=== PATIENT | male | born 1975 | race Two or more races ===

== ENCOUNTER → 2023-05-29 | Outpatient (CLI) | payer BC ==
[2023-05-29 08:27] LABS: Basophils # (auto) 0 10 ^3/uL (0-0.2); Basophils % (auto) 0.5 % (0.0-2.0); Eosinophils # (auto) 0.2 10 ^3/uL (0-0.8); Eosinophils % (auto) 2.9 % (0.0-7.0); Hematocrit 47.3 % (41.0-53.0); Hemoglobin 15.7 g/dL (13.5-17.5); Lymphocytes # (auto) 1.8 10 ^3/uL (0.4-5.4); Lymphocytes % (auto) 31.7 % (10.0-50.0); Mean Corpuscular Hemoglobin 28.8 pg (28.0-32.0); Mean Corpuscular Hgb Conc. 33.2 g/dL (32.0-36.0); Mean Corpuscular Volume 86.9 fL (80.0-100.0); Monocytes # (auto) 0.5 10 ^3/uL (0-1.3); Monocytes % (auto) 8.5 % (0.0-12.0); Neutrophils # (auto) 3.3 10 ^3/uL (1.6-8.6); Neutrophils % (auto) 56.4 % (37.0-80.0); Red Blood Cells 5.44 10^6/uL (4.5-5.90); Red Cell Distribution Width 14.3 % (11.8-14.3); White Blood Cell 5.8 10^3/uL (4.4-10.8)
[2023-05-29 09:28] LABS: Erythrocyte Sedimentation Rate 2 mm/hr (0-20)
[2023-05-29 10:13] LABS: Alanine Aminotransferase 16 U/L (7-40); Albumin 4.1 g/dL (3.2-4.8); Alkaline Phosphatase 65 U/L (46-116); Anion Gap 6 (5-15); Aspartate Aminotransferase 18 U/L (13-40); BUN/Creatinine Ratio 15.6 (10.0-20.0); Blood Urea Nitrogen 15 mg/dL (9-23); CRP High Sensitivity 0.04 mg/dL (<1.0); Calcium 9.2 mg/dL (8.5-10.1); Carbon Dioxide 29 mmol/L (20-30); Chloride 106 mmol/L (98-107); Glucose 97 mg/dL (74-106); Potassium 4.1 mmol/L (3.5-5.1); Sodium 141 mmol/L (136-145)
[2023-05-29 10:14] LABS: Bilirubin, Total 0.7 mg/dL (0.2-1.0); Total Protein 6.7 g/dL (5.7-8.2)
[2023-05-29 10:21] LABS: Hepatitis B Surface Antibody Negative (Negative)
[2023-05-29 10:34] LABS: Hepatitis B Surface Antigen Negative (Negative)
[2023-05-29 10:53] LABS: Hepatitis B Core IgM Negative
[2023-05-29 10:55] LABS: Hepatitis C Antibody Negative (Negative)
[2023-05-30 08:06] LABS: Rheumatoid Arthritis Factor 13.5 IU/mL (<14.0)
[2023-05-30 13:06] LABS: Hepatitis B Core Total Antibod Negative (Negative)
[2023-06-01 02:06] LABS: QuantiFERON-TB Gold Plus Negative (Negative)
[2023-06-01 17:06] LABS: CCP IgG/IgA Antibody 0 units (0-19)
[2023-06-08 12:06] LABS: HLA B 27 Disease Association Negative (.)
== END | disposition home or self-care (01) ==
LOC: LAB 08:02
PROVIDERS: ATTEND Internal Medicine Rheumatology
DX: L40.50 Arthropathic psoriasis, unspecified (principal)
CPT/HCPCS: 36415; 80053; 85025; 85652; 86141; 86200; 86431; 86705; 86706; 86803; 86812; 87340